=== PATIENT | female | born 2000 | race Caucasian/White ===

== ENCOUNTER 2019-11-28 02:15 | Emergency (ER) | payer BC ==
[2019-11-28] MEDS ORDERED: Boostrix 0.5 ML VIAL ONE (03:01)
[2019-11-28] MEDS ORDERED: Lidocaine 1% (PF) 30 ML VIAL ONE (03:18)
[2019-11-28] MEDS ORDERED: Bacitracin 1 PK ONE (04:42)
--- NOTE | 2019-11-28 14:37 | RAD ---
TWO VIEWS LEFT HUMERUS: 11/28/19 HISTORY: Left arm laceration. FINDINGS: There is soft tissue defect and lucency involving the subcutaneous soft tissues involving the lateral aspect of the left mid arm with associated subcutaneous edema related to laceration. No radiopaque f oreign body is seen. There is no fracture or other acute osseous abnormality. IMPRESSION: Soft tissue laceration and subcutaneous edema left mid and distal arm laterally without evidence of r adiopaque foreign body or acute osseous abnormality. POS: [facility]
== END 2019-11-28 04:59 | disposition home or self-care (01) ==
LOC: ERS 02:15
DX: S41.112A Laceration without foreign body of left upper arm, initial encounter (principal); F17.210 Nicotine dependence, cigarettes, uncomplicated; X99.9XXA Assault by unspecified sharp object, initial encounter
CPT/HCPCS: 12034; 90471; 90715; J2001